=== PATIENT | male | born 1955 | race Caucasian/White ===

== ENCOUNTER 2022-10-23 22:13 | Emergency (ER) | payer MEDICARE ==
[2022-10-23] MEDS ORDERED: PROPARACAINE 0.5% OPHTH DROPS 15 ML RIGHTEYE STA (22:32)
--- NOTE | 2022-10-23 23:46 | ED Physician Documentation ---
PD HPI OPHTHO - Stated complaint Stated Complaint: EYE PAIN - Chief complaint Chief Complaint: Heent - History obtained from History obtained from: Patient - History of Present Illness Timing - onset: Enter time (15:00), Today Timing - details: Gradual onset Location: Right Associated symptoms: Redness, Discharge, FB sensation Recently seen: Not recently seen - Additional information Additional information: HPI from patient. Patient complains of gradual onset of right thigh pain since approximately 3 PM. He first noticed this discomfort while at home at rest and he describes a distinct foreign body sensation. There was no injury to the eye nor a specific inciting event. We tried flushing out the eye with tap water without improvement. He does not wear contact lenses; he wears glasses for near vision. He denies history of similar symptoms. He denies change in vision. Review of Systems Eyes: reports: Discharge, Irritation. denies: Loss of vision, Decreased vision, Photophobia PD PAST MEDICAL HISTORY - Past Medical History Past Medical History: No HEENT: Other Other Past Medical History: Corrected vision - Past Surgical History Past Surgical History: No - Present Medications Home Medications: Ambulatory Orders Medication Instructions Recorded Confirmed No Known Home Medications 10/23/22 10/23/22 - Allergies Allergies/Adverse Reactions: Allergies Allergy/AdvReac Type Severity Reaction Status Date / Time No Known Drug Allergies Allergy Verified 10/23/22 22:29 - Social History Does the pt smoke?: No Smoking Status: Never smoker Does the pt drink ETOH?: No Does the pt have substance abuse?: No - Immunizations Immunizations are current?: Yes - POLST Patient has POLST: No PD ED PE NORMAL - Vitals Vital signs reviewed: Yes - General General: Alert and oriented X 3, No acute distress, Well developed/nourished - HEENT HEENT: PERRL, EOMI PD ED PE EXPANDED - Eyes Eyes: Right eye, No eyelid FB (everted), Injected conj/sclera, Exudate (mild purulent discharge), Normal corneas, Anterior chambers clear. No: Eyelid swelling, Eyelid erythema, Fluorescein uptake Results - Vitals Vitals: Vital Signs - 24 hr 10/23/22 10/23/22 10/23/22 22:25 22:30 23:35 Temperature 36.9 C Heart Rate 54 L 59 L Respiratory 16 16 16 Rate Blood Pressure 142/78 H 121/73 O2 Saturation 94 10/24/22 00:08 Temperature Heart Rate 61 Respiratory 16 Rate Blood Pressure 134/79 H O2 Saturation 99 Oxygen O2 Source Room air PD Medical Decision Making - ED course Complexity details: considered differential, d/w patient ED course: No corneal fluorescein uptake of the right eye (inspected with Gutierrez lamp). There is also no foreign body visualized on inspection of the right eye using the bedside ophthalmoscope; right upper eyelid is everted and under magnification using the bedside ophthalmoscope, there is no foreign body noted. His right conjunctiva is injected and there is mild to moderate purulent discharge from the right eye. There is no periorbital erythema nor swelling. This combination of findings and symptoms is c/w conjunctivitis; while viral conjunctivitis is likely, he will be covered with Polytrim ophthalmic drops for possible bacterial cause; polytrim given to take home with first drop to right eye instilled prior to d/c. Departure - Departure Disposition: 01 Home, Self Care Clinical Impression: Conjunctivitis Qualifiers: Conjunctivitis type: acute Acute conjunctivitis type: unspecified Laterality: right Qualified Code(s): H10.31 - Unspecified acute conjunctivitis, right eye Condition: Good Instructions: ED Conjunctivitis Nonspecific Comments: There is no evidence of a corneal abrasion nor foreign body on the exam tonight. The swelling and red appearance of the eye, combined with the discharge from the eye, strongly suggest an infectious cause of your symptoms. When the surface of the cornea is irritated (from, in your case, inflammation, or else from a foreign body or corneal abrasion), it will feel very much like a foreign body. Use the antibiotic drops provided as follows: 1 drop in the right eye 4 times a day for 5 to 7 days. If, at the end of the fifth day of the antibiotic drops, your eye appears and feels normal, you can stop the antibiotic drops. Otherwise continue for up to 7 days until the eye appears and feels normal. If, fter one week of the antibiotic drops, you still have any visible abnormality of the right eye, or if it still feels like a foreign body or any other abnormal sensation, you should seek follow-up with your primary care provider for reevaluation. Certainly, if your symptoms worsen in any way, you can always return to the emergency department for reevaluation. Discharge Date/Time: 10/24/22 00:14
[2022-10-24] MEDS ORDERED: POLYMYXIN B/TRIMETH OPHTH DROPS RIGHTEYE STA (00:07)
[2022-10-24 00:09] VITALS: BP 134/79
== END 2022-10-24 00:14 | disposition home or self-care (01) ==
LOC: ED 22:13
DX: H10.31 Unspecified acute conjunctivitis, right eye (principal)
CPT/HCPCS: 99282; 99283; A9270; J3490